=== PATIENT | female | born 1935 | race Caucasian/White ===

== ENCOUNTER 2018-02-16 06:00 | Emergency (ER) | payer OTHER ==
[~2018-02-16] VITALS: Ht 160 cm; Wt 53.8 kg
[~2018-02-16 06:00] MED LIST: ASCORBIC ACID500 M3 PO; ASPIRIN EC325 MG PO; BACTRIM,SEPT1 TABLET PO; BAYER CHEWABLE81 MG PO; CALCIUM 600 +1 EAC9 PO; CLARITIN10 M3 PO; COLACE100 MG PO; CRESTOR5 MG PO; CYANOCOBALAM1000 MCG PO; DOK PLUS TABLE1 EACH PO; FLEXERIL5 MG PO; FOLIC ACID1 MG PO; HYDROCODON-ACE1 EAC7 PO; KONSYL PSYLLIU3.4 GM PO; LOVENOX30 MG/0.3 SC; THERAGRAN1 TABLET PO; TYLENOL REGULA325 MG PO; VITAMIN C500 M1 PO; VITAMIN D-32000 UNI2 PO; VITAMIN D32000 UNI1 PO
[2018-02-16 07:32] LABS: HEMATOCRIT 36.4 % (36.0-46.0); HEMOGLOBIN 11.8 G/DL (11.9-15.5); MCH 29.8 PG (29.0-34.0); MCHC 32.4 G/DL (30.0-36.0); MCV 91.9 FL (83-99); PLATELET COUNT 170 K/uL (156-360); RBC DIS.WIDTH-CV 13.6 % (11.8-14.6); RBC DIS.WIDTH-SD 46.5 % (39-53); RED BLOOD COUNT 3.96 M/uL (3.80-5.20); WHITE BLOOD COUNT 4.8 K/uL (4.1-10.2)
[2018-02-16 08:07] LABS: CHLORIDE 106 MEQ/L (99-109); CREATININE 1.1 MG/DL (0.6-1.3); GFR ESTIMATE (CALCULATED) 50 mL/min/; GLUCOSE 96 mg/dL (70-99); POTASSIUM 4.3 MEQ/L (3.7-5.4); SODIUM 141 MEQ/L (136-147); UREA NITROGEN (BUN) 28 mg/dL (9-23)
[2018-02-16] MEDS ORDERED: VENTOLIN HFA18 GM IH (08:21)
[2018-02-16 08:50] VITALS: BP 175/70
== END 2018-02-16 08:50 | disposition home or self-care (01) ==
LOC: EME 06:00
PROVIDERS: Physician Assistant
DX: J40 Bronchitis, not specified as acute or chronic (principal); J98.01 Acute bronchospasm; J44.9 Chronic obstructive pulmonary disease, unspecified; R94.31 Abnormal electrocardiogram [ECG] [EKG]; E78.5 Hyperlipidemia, unspecified; Z79.82 Long term (current) use of aspirin
CPT/HCPCS: 71046; 80048; 85027; 93005; 94640; 99281; 99284